=== PATIENT | male | born 1995 | race American Indian/Alaskan Native ===

== ENCOUNTER 2019-06-19 12:15 | Emergency (ER) | payer SELFPAY ==
--- NOTE | 2019-06-19 12:40 | Emergency Department Report ---
Chief Complaint: Pain General Stated Complaint: BODY PAIN Time Seen by Provider: 06/19/19 12:32 - HPI History of Present Illness: 23 y/o male comes in for Body. Reports that on Wednesday he was tired and and no specific complaints. No fevers, no abd pain, no cough No N/V. Able to drink and eat. Wants to get a Physicial and STD check. - ROS Review of Systems: BODY - Exam Physical Exam: AxO 3 NAD PERRL EOMI Moist mucous ambulating well. MSE screening note: Focused history and physical exam performed. Due to findings the following was ordered: [facility]D [facility]. ED Disposition for MSE Disposition: Z MED SCREENING EXAM-LEFT Condition: Stable
== END 2019-06-19 12:40 | disposition left against medical advice (07) ==
LOC: ED 12:15
DX: R52 Pain, unspecified (principal); Z11.3 Encounter for screening for infections with a predominantly sexual mode of transmission